=== PATIENT | male | born 1980 | race Caucasian/White ===

== ENCOUNTER 2016-10-16 03:38 | Emergency (ER) | payer OTHER ==
[~2016-10-16] VITALS: Ht 175.3 cm; Wt 109.1 kg
[~2016-10-16 03:38] MED LIST: CELEXA10 MG PO; CIPRO 500MG TA500 MG PO; CLINDAMYCIN HC150 MG PO; NO HOME MEDICATIONS; PROAIR HFA0.09 MG/AC IH; SEPTRA DS 8001 TAB PO; ZITHROMAX 250M250 MG PO
[2016-10-16 03:43] VITALS: BP 143/95; TEMP 97.5
[2016-10-16] MEDS ORDERED: SINGULAIR 110 MG/TAB PO (04:00)
[2016-10-16] MEDS ORDERED: ZYBAN150 M1 PO (04:00)
[2016-10-16] MEDS ORDERED: ZOCOR 20MG20 MG PO (04:00)
[2016-10-16] MEDS ORDERED: NORCO 325 MG-51 TAB PO (04:37)
[2016-10-16 05:00] VITALS: PULSE 60
== END 2016-10-16 04:52 | disposition home or self-care (01) ==
LOC: COL.ER 03:38
DX: S90.211A Contusion of right great toe with damage to nail, initial encounter (principal); F17.210 Nicotine dependence, cigarettes, uncomplicated; W20.8XXA Other cause of strike by thrown, projected or falling object, initial encounter; Y92.009 Unspecified place in unspecified non-institutional (private) residence as the place of occurrence of the external cause

== ENCOUNTER → 2017-05-30 | Outpatient (CLI) | payer OTHER ==
[~2017-05-30] MED LIST changes: +NORCO 325 MG-51 TAB PO; +SINGULAIR 110 MG/TAB PO; +ZOCOR 20MG20 MG PO; +ZYBAN150 M1 PO
== END ==
LOC: MC.RAD 13:25
DX: N62 Hypertrophy of breast (principal)

== ENCOUNTER 2017-10-16 18:34 | Emergency (ER) | payer OTHER ==
[~2017-10-16] VITALS: Ht 175.3 cm; Wt 115.9 kg
[2017-10-16 18:58] VITALS: BP 139/85; TEMP 98.1
[2017-10-16 20:43] VITALS: PULSE 82
== END 2017-10-16 20:44 | disposition home or self-care (01) ==
LOC: COL.ER 18:34
DX: S01.01XA Laceration without foreign body of scalp, initial encounter (principal); F41.9 Anxiety disorder, unspecified; F32.9 Major depressive disorder, single episode, unspecified; J45.909 Unspecified asthma, uncomplicated; E78.5 Hyperlipidemia, unspecified; Z23 Encounter for immunization; W26.8XXA Contact with other sharp object(s), not elsewhere classified, initial encounter

== ENCOUNTER 2017-10-23 14:35 | Outpatient (RCR) | payer OTHER | END 2018-01-21 | disposition home or self-care (01) | LOC: WSOH | DX: S01.01XA Laceration without foreign body of scalp, initial encounter (principal); G44.319 Acute post-traumatic headache, not intractable; W22.8XXA Striking against or struck by other objects, initial encounter; Y92.59 Other trade areas as the place of occurrence of the external cause; Y99.0 Civilian activity done for income or pay; Z87.891 Personal history of nicotine dependence; Z79.899 Other long term (current) drug therapy ==

== ENCOUNTER → 2019-01-30 | Outpatient (CLI) | payer OTHER | LOC: COL.RAD 08:51 | DX: M76.52 Patellar tendinitis, left knee (principal); M76.51 Patellar tendinitis, right knee ==

== ENCOUNTER 2019-09-19 20:46 | Emergency (ER) | payer OTHER ==
[~2019-09-19] VITALS: Ht 175.3 cm; Wt 122.7 kg
[~2019-09-19 20:46] MED LIST changes: +ATARAX50 MG PO; +CEFTIN500 MG PO; +PROAIR RES117 MCG/Ac IH; +PROZAC 20MG20 MG PO; +ZOCOR 10MG10 MG PO
[2019-09-19 21:48] VITALS: BP 138/84; PULSE 78; TEMP 97.7
== END 2019-09-19 21:59 | disposition home or self-care (01) ==
LOC: COL.ER 20:46
DX: K08.89 Other specified disorders of teeth and supporting structures (principal); F32.9 Major depressive disorder, single episode, unspecified; F41.9 Anxiety disorder, unspecified; F17.210 Nicotine dependence, cigarettes, uncomplicated; Z88.0 Allergy status to penicillin

== ENCOUNTER 2020-05-10 14:18 | Outpatient (RCR) | payer OTHER | END 2020-08-08 | disposition home or self-care (01) | LOC: WSOH | DX: S39.91XA Unspecified injury of abdomen, initial encounter (principal); J45.909 Unspecified asthma, uncomplicated; F41.9 Anxiety disorder, unspecified; F41.8 Other specified anxiety disorders; E78.00 Pure hypercholesterolemia, unspecified; Z90.49 Acquired absence of other specified parts of digestive tract; Z90.89 Acquired absence of other organs; Z87.891 Personal history of nicotine dependence; W54.0XXA Bitten by dog, initial encounter; Y99.0 Civilian activity done for income or pay ==

== ENCOUNTER → 2021-03-14 | Outpatient (CLI) | payer BC | LOC: COL.RAD 13:57 | DX: U07.1 COVID-19 (principal); K76.0 Fatty (change of) liver, not elsewhere classified | CPT/HCPCS: Q9967 ==

== ENCOUNTER 2021-05-19 08:55 | Day surgery (SDC) | payer BC ==
[2021-05-19] VITALS (8 sets, daily range): BP systolic 121–140; BP diastolic 81–99; PULSE 70–85; TEMP 97
[~2021-05-19] VITALS: Ht 175.4 cm; Wt 124.0 kg
[2021-05-19] MEDS ORDERED: XANAX 0.5MG0.5 MG PO (09:22)
[2021-05-19] MEDS ORDERED: ASPIRIN 32325 MG/TAB PO (09:23)
[2021-05-19] MEDS ORDERED: BRINTELLIX20 (09:23)
[2021-05-19] MEDS ORDERED: VOLTAREN GEL 1%1 TU TP (09:25)
[2021-05-19] MEDS ORDERED: NITROSTAT0.4 MG/TAB SL (09:27)
[2021-05-19] MEDS ORDERED: WELLBUTRIN XL150 MG PO (09:28)
[2021-05-19] MEDS ORDERED: ZOCOR 20MG20 MG PO (09:29)
[2021-05-19 09:53] LABS: HEMATOCRIT 41.6 % (42.0-52.0); HEMOGLOBIN 14.9 g/dl (13.5-18.0); MEAN CELL VOLUME 87 fl (80.0-100.0); MEAN CORPUSCULAR HEMOGLOBIN 31 pg (27-31); MEAN CORPUSCULAR HGB CONC 36 g/dl (33.0-37.0); MEAN PLATELET VOLUME 10.1 fl (7.4-10.4); PLATELET COUNT 248 K/mm3 (130-400); RED BLOOD COUNT 4.81 M/mm3 (4.20-5.60); REDCELL DISTRIBUTION WIDTH-CV 12.4 % (11.5-14.5)
[2021-05-19 10:00] LABS: INR 1.1 (0.8-3.0); PROTHROMBIN TIME 11.9 SECONDS (9.7-12.8)
[2021-05-19 10:03] LABS: PARTIAL THROMBOPLASTIN TIME 35.8 SECONDS (26.0-37.0)
[2021-05-19 10:07] LABS: CALCIUM 8.9 mg/dL (8.4-10.2); CREATININE, serum 1.02 mg/dL (0.72-1.25); POTASSIUM 3.8 mmol/L (3.5-4.5)
--- NOTE | 2021-05-19 10:16 | NUR ---
Moderate sedation assessment completed after assessing patient in express unit. See merge for all medication administration, intervention, assessment, and vital sign times.
--- NOTE | 2021-05-19 10:25 | NUR ---
Initial visit; Patient and golf caddie thanked Bowling Floor Manager for offering comfort and prayer prior to his surgical procedure.
--- NOTE | 2021-05-19 11:20 | NUR ---
PT TO EU 10 VIA BED FROM REGISTERED DIET TECHNICIAN, WITH PT, HE IS AWAKE AND ALERT, NO C/O PAIN, STATES HE IS STILL EMOTIONAL ABOUT PROCEDURE BUT HAVING NO SOB OR CHEST PAIN. CALL LIGHT IN REACH, TAKES WATER, LUNCH ORDERED, INST. TO KEEP RIGHT ARM STILL, HOB ELEVATED 40 DEGREES
[2021-05-19] MEDS ORDERED: EPA FISH OIL1 SGL PO (11:57)
--- NOTE | 2021-05-19 12:30 | NUR ---
PT VISITS WITH , WATCHES TV, EATS LUNCH, NO C/O
--- NOTE | 2021-05-19 13:30 | NUR ---
RELEASED BAND 2CC, HAD SLIGHT OOZE, NO SWELLING. AIR REINSERTED WILL WAIT 30MIN NO OTHER CHANGES TO SITE.
--- NOTE | 2021-05-19 14:00 | NUR ---
STARTED RELEASING AIR FROM BAND 2CC AT A TIME OVER 15 MIN, NO BLEEDING, OOZING OR SWELLING TO SITE, BANDAID OVER SITE WRAPPED WITH COBAN FOR SUPPORT, REVIEWED DISCHARGE INST. WITH PT ON CARE OF SITE, ACTIVITY, FOLLOWUP AND TO SOFTWARE ENGINEER [employer] NEW RX AT PHARMACY WITH VERBAL UNDERSTANDING.
--- NOTE | 2021-05-19 14:45 | NUR ---
PT SITS ON SIDE OF BED, IV D'CD INTACT, UP IN ROOM DRESSED, IN ROOM, PT DISCHARGED AT 1515 VIA W/C TO CAR WITH
== END 2021-05-19 15:10 | disposition home or self-care (01) ==
LOC: COL.CAR 08:55
PROVIDERS: Internal Medicine Cardiovascular Disease
DX: R94.39 Abnormal result of other cardiovascular function study (principal); R07.89 Other chest pain; R06.09 Other forms of dyspnea; R06.83 Snoring; I45.10 Unspecified right bundle-branch block; I51.7 Cardiomegaly; E66.01 Morbid (severe) obesity due to excess calories; E78.2 Mixed hyperlipidemia; F17.210 Nicotine dependence, cigarettes, uncomplicated; Z86.16 Personal history of COVID-19; Z79.899 Other long term (current) drug therapy
CPT/HCPCS: C1769; J1644; J2250; J3010; Q9967

== ENCOUNTER → 2021-09-18 | Outpatient (CLI) | payer BC ==
[~2021-09-18] MED LIST changes: +ASPIRIN 32325 MG/TAB PO; +BRINTELLIX20; +EPA FISH OIL1 SGL PO; +NITROSTAT0.4 MG/TAB SL; +VOLTAREN GEL 1%1 TU TP; +WELLBUTRIN XL150 MG PO; +XANAX 0.5MG0.5 MG PO
== END ==
LOC: COL.PUL 08:09
DX: R06.02 Shortness of breath (principal)
CPT/HCPCS: J7674

== ENCOUNTER → 2022-06-11 | Outpatient (CLI) | payer OTHER | LOC: DIA.ED 08:04 | DX: E11.9 Type 2 diabetes mellitus without complications (principal); E78.5 Hyperlipidemia, unspecified ==